=== PATIENT | male | born 1970 | race Caucasian/White ===

== ENCOUNTER 2024-07-15 06:28 | Day surgery (SDC) | payer BC, SELFPAY ==
[2024-07-15 07:31] LABS: Glucose - Point of Care 191 mg/dl (70-99)
== END 2024-07-15 09:02 | disposition home or self-care (01) ==
LOC: GI 06:28
PROVIDERS: ATTENDING PHYSICIAN Internal Medicine
DX: Z12.11 Encounter for screening for malignant neoplasm of colon (principal); D12.0 Benign neoplasm of cecum; D12.5 Benign neoplasm of sigmoid colon; K57.30 Diverticulosis of large intestine without perforation or abscess without bleeding; K64.8 Other hemorrhoids; K64.4 Residual hemorrhoidal skin tags; Z80.0 Family history of malignant neoplasm of digestive organs
CPT/HCPCS: 45385; 45380; 88305; 82962

== ENCOUNTER → 2024-10-08 08:45 | Outpatient (REF) | payer BC, SELFPAY | LOC: EMG 08:45 | PROVIDERS: ATTENDING PHYSICIAN Nurse Practitioner | DX: R20.2 Paresthesia of skin (principal) | CPT/HCPCS: 95886; 95913 ==

== ENCOUNTER → 2024-11-09 11:25 | Outpatient (REF) | payer BC, SELFPAY | LOC: DHSLP 11:25 | PROVIDERS: ATTENDING PHYSICIAN Nurse Practitioner | DX: G47.33 Obstructive sleep apnea (adult) (pediatric) (principal) | CPT/HCPCS: 95806 ==